=== PATIENT | female | born 1970 | race Caucasian/White ===

== ENCOUNTER 2023-08-28 08:51 | Emergency (ER) | payer OTHER ==
[2023-08-28 09:10] VITALS: RESP 18; TEMP 98; O2SAT 99
--- NOTE | 2023-08-28 09:33 | ERPHSYRPT ---
- History of Present Illness Time Seen by Provider: 08/28/23 09:31 Source: patient Exam Limitations: no limitations Patient Subjective Stated Complaint: C/O nose bleed off and on for 35 minutes Triage Nursing Assessment: Patient ambulated back to ER. She is alert and oriented. Active bleeding present from left nare. Patient given a cool cloth, ic e pack, nose clamp. She is sitting up straight in bed with cold pressure being applied to bridge of nose. NO SOB. Skin tone normal. Physician History: C/O nose bleed off and on for 35 minutes Timing/Duration: abrupt onset Severity: mild ENT Location: nose Prearrival Treatment: squeezing nostrils Associated Symptoms: denies symptoms Allergies/Adverse Reactions: No Known Drug Allergies Allergy (Verified 08/28/23 08:58) Home Medications: Amitriptyline HCl 25 mg [Amitriptyline 25 mg Tablet] 25 mg PO DAILY 08/28/23 [History] Amlodipine Besylate [Norvasc] 10 mg PO DAILY 08/28/23 [History] Atorvastatin Calcium [Lipitor 40Mg] 40 mg PO DAILY 08/28/23 [History] Lamotrigine [Lamotrigine ER] 200 mg PO BID 08/28/23 [History] Omeprazole 40 mg PO DAILY 08/28/23 [History] Warfarin Sodium [Jantoven] 4 mg PO CLARIFY 08/28/23 [History] Hx Tetanus, Diphtheria Vaccination/Date Given: Yes Hx Influenza Vaccination/Date Given: Yes Immunizations Up to Date: Yes Travel Risk - International Travel Have you traveled outside of the country in past 3 weeks: No - Emerging Infectious Disease Are you exhibiting symptoms associated with any current EIDs: No - Review of Systems Constitutional: No Symptoms Eyes: No Symptoms Ears, Nose, & Throat: Epistaxis (Left anterior Nares) Respiratory: No Symptoms Cardiac: No Symptoms Abdominal/Gastrointestinal: No Symptoms Genitourinary Symptoms: No Symptoms Musculoskeletal: No Symptoms Skin: No Symptoms Neurological: No Symptoms Psychological: No Symptoms Endocrine: No Symptoms Hematologic/Lymphatic: No Symptoms Immunological/Allergic: No Symptoms - Past Medical History Neurological History: Seizures Cardiac History: High Cholesterol, Hypertension Endocrine Medical History: Diabetes Type II GI Medical History: GERD, Gallbladder Disease - Past Surgical History Past Surgical History: Yes Cardiac: CABG Gastrointestinal: Cholecystectomy Female Surgical History: Section, Tubal Ligation Other Surgical History: rotator cuff, back shunt (lumbar) - Social History Smoking Status: Never smoker Exposure to second hand smoke: No Drug Use: none - Social Determinants of Health Will the patient participate in the screening: Yes Do you worry about a steady place to live?: No Do you have any problems with any of the following?: No known problems In the past 12 months,have you had to go without utilities?: No Transportation Issues: No Has anyone in your support network made you feel unsafe?: No Have you or anyone in your house had to go without enough: No - Nursing Vital Signs Nursing Vital Signs: Initial Vital Signs Temperature 98 F 08/28/23 09:01 Pulse Rate 63 08/28/23 09:01 Respiratory Rate 18 08/28/23 09:01 Blood Pressure 99/32 08/28/23 09:01 O2 Sat by Pulse Oximetry 99 08/28/23 09:01 Pain Scale Pain Intensity 4 - Physical Exam General Appearance: no apparent distress, alert Eye Exam: bilateral eye: PERRL, EOMI Ear Exam: bilateral ear: auricle normal, canal normal, TM normal Nasal Exam: active bleeding (left anterior Nares) Throat Exam: pharynx normal, moist mucus membranes, No tonsillar exudate Neck Exam: supple Cardiovascular/Respiratory Exam: normal breath sounds, regular rate/rhythm Abdominal Exam: non-tender, soft Neurologic Exam: alert, oriented x 3, sensation nml, No motor deficits Skin Exam: normal color, warm, dry SpO2: 99 - Course Nursing assessment & vital signs reviewed: Yes EKG Interpreted by Me: Sinus Rhythm Ordered Tests: Active Orders 24 hr Category Date Time Status Epistaxis Set Up STAT Care 08/28/23 09:40 Active CBC W DIFF Stat Lab 08/28/23 09:45 Completed PROTIME WITH INR Stat Lab 08/28/23 09:45 Completed PTT Stat Lab 08/28/23 09:45 Completed Medication Summary Discontinued Medications Generic Name Dose Route Start Last Admin Trade Name Monet PRN Reason Stop Dose Admin Phenylephrine HCl 15 ml 08/28/23 09:35 08/28/23 09:36 Neosynephrine 0.5% Nasal [place]/Drops NS 08/28/23 09:36 15 ml STAT ONE Administration Phenylephrine HCl Confirm 08/28/23 09:34 Neosynephrine 0.5% Nasal [place]/Drops Administered 08/28/23 09:35 Dose 15 ml .ROUTE [facility] ONE Lab/Rad Data: Laboratory Result Diagrams 08/28/23 09:45 Laboratory Results 08/28/23 08/28/23 Range/Units 09:45 09:45 WBC 6.1 (3.98-10.04) x10^3/uL RBC 4.34 (3.93-5.22) x10^6/uL Hgb 11.5 (11.2-15.7) g/dL Hct 36.3 (34.1-44.9) % MCV 83.6 (79.4-94.8) fL MCH 26.5 (25.6-32.2) pg MCHC 31.7 L (32.2-35.5) g/dL RDW 16.6 H (11.7-14.4) % Plt Count 271 (182-369) x10^3/uL MPV 9.8 (9.4-12.3) fL Gran % 60.6 (34.0-71.1) % Immature Gran % (Auto) 0.5 H (0.001-0.429) % Nucleat RBC Rel Count 0.0 (0.00-0.2) % Eos # (Auto) 0.03 L (0.04-0.36) x10^3/uL Immature Gran # (Auto) 0.03 (0.001-0.031) x10^3u/L Absolute Lymphs (auto) 2.00 (1.18-3.74) x10^3/uL Absolute Monos (auto) 0.28 (0.24-0.86) x10^3/uL Absolute Nucleated RBC 0.00 (0.00-0.012) x10^3u/L Lymphocytes % 33.1 (19.3-51.7) % Monocytes % 4.6 L (4.7-12.5) % Eosinophils % 0.5 L (0.7-5.8) % Basophils % 0.7 (0.1-1.2) % Absolute Granulocytes 3.67 (1.56-6.13) x10^3/uL Basophils # 0.04 (0.01-0.08) x10^3/uL PT 24.1 H (9.4-12.5) SECONDS INR 2.34 (0.8-3.0) APTT 38.6 H (25.1-36.5) SECONDS - Progress Progress: improved Counseled pt/family regarding: lab results, diagnosis, need for follow-up Medical Desision Making - Independent Historian Additional History obtained from: Spouse, Family - Diagnostic Testing Diagnostic test were ordered, analyzed, and reviewed by me: Yes - Risk of complications Minimal Risk: Minimal risk of morbidity - Departure Departure Disposition: Home Clinical Impression: Acute anterior epistaxis Condition: Stable Critical Care Time: No Referrals: DOCTOR,NO FAMILY [Primary Care Provider] - Follow up/PCP as directed Instructions: Nosebleeds (DC) Additional Instructions: Please keep nose clamp at least for 30 to 40 minutes then you can take it off for few minutes and then put it back. If necessary also put K-Y jelly soaked cotton balls in your left nares. Continue your Coumadin. Stop aspirin for 5 days. Follow-up with your primary care physician tomorrow if bleeding continues. Discharge/Care Plan VIRGILIO GARCIA was seen on 08/28/23 in the Emergency Room. The patient was counseled regarding Diagnosis,Lab results, Imaging studies, need for follow up and when to return to the Emergency Room. Prescriptions given: Discharge Note I have spoken with the patient and/or caregivers. I have explained the patient's condition, diagnosis and treatment plan based on the information available to me at this time. I have answered the patient's and/or caregiver's questions and addressed any concerns. The patient and/or caregivers have as good understanding of the patient's diagnosis, condition and treatment plan as can be expected at this point. The vital signs have been stable. The patient's condition is stable and appropriate for discharge from the emergency department. The patient will pursue further outpatient evaluation with the primary care physician or other designated or consulting physician as outlined in the discharge instructions. The patient and/or caregivers are agreeable to this plan of care and follow-up instructions have been explained in detail. The patient and/or caregivers have received these instruction. The patient/and or caregivers are aware that any significant change in condition or worsening of symptoms sh ould prompt an immediate return to this or the closest emergency department or call 911. VIRGILIO GARCIA was seen on 08/28/23 n the Emergency Room. At that time you were treated for an emergent condition, during your visit Laboratory, Radiology and/or other procedures may have been ordered. It is very important that you follow-up with your Primary Care Physician NO FAMILY DOCTOR within the next 24- 48 hours to review your Emergency Room visit and the final results of testing that was ordered. Some test results such as Urine Cultures, Blood Cultures, and other cultures if ordered will not be finalized for 24-48 hours. If you do not have a Primary Care Provider please call the medical records department at [phone] ext [phone] to obtain a copy of your results or you may sign into our patient portal to obtain these results by visiting us @ [email or web address] and completing the following steps: 1. Click on the Patient Portal link 2. Click the Patient Self Enrollment Link to complete the enrollment form and entering your 3. Once the enrollment form is completed you will receive an email with a temporary ID and password at the email address you provided. 4. Next choose a user name and password. Your user name must be at least 4 characters long and your password must be at least 4 characters long. 5. Choose a security question from the list and provide your answer to the question. If you already have signed into the Health Portal you may access your Health Care Information 27/09 by the following steps: 1. Login to our website @ [email or web address] 2. Enter your original user name and password. FAQS [facility] Portal is an online tool that contains your Lab Results, Radiology Reports, Visit History, Discharge Instructions and Health Summary Lab and Radiology Results will not be available for 72 hours on the portal. The Portal is a secure site, passwords are encryted and URLs are re-written so they cannot be copied and pasted. You and authorized family members are the only ones who can access your Portal. Also there is a timeout feature that protects your information if you leave the Portal page open. If you have technical difficulty please use the Contact Us link on the page this will allow you to submit any questions you have regarding the Portal or you may contact the Medical Record Department at [phone].
[2023-08-28] MEDS ORDERED: NEOSYNEPHRINE 0.5% NASAL SPRAY/DROPS ONE (09:34)
[2023-08-28] MEDS: NEOSYNEPHRINE 0.5% NASAL SPRAY/DROPS NS ONE (09:36)
[2023-08-28 09:58] LABS: Absolute Neutrophil Ct (ANC) 3.67 x10^3/uL (1.56-6.13); BASOPHIL % 0.7 % (0.1-1.2); Basophil (Absolute #) 0.04 x10^3/uL (0.01-0.08); Eosinophil % 0.5 % (0.7-5.8); Eosinophil (Absolute #) 0.03 x10^3/uL (0.04-0.36); Hematocrit 36.3 % (34.1-44.9); Hemoglobin 11.5 g/dL (11.2-15.7); IMMATURE GRAN # 0.03 x10^3u/L (0.001-0.031); IMMATURE GRAN % 0.5 % (0.001-0.429); Lymphocytes % 33.1 % (19.3-51.7); Mean Cell Volume 83.6 fL (79.4-94.8); Mean Corpuscular Hemoglobin 26.5 pg (25.6-32.2); Mean Corpuscular Hgb Concent. 31.7 g/dL (32.2-35.5); Mean Platelet Volume 9.8 fL (9.4-12.3); Monocyte (Absolute #) 0.28 x10^3/uL (0.24-0.86); Monocytes % 4.6 % (4.7-12.5); Neutrophil % 60.6 % (34.0-71.1); Platelet Count 271 x10^3/uL (182-369); Red Blood Count 4.34 x10^6/uL (3.93-5.22); Red Cell Distribution Width 16.6 % (11.7-14.4); White Blood Count 6.1 x10^3/uL (3.98-10.04)
[2023-08-28 10:20] LABS: INR 2.34 (0.8-3.0); PROTIME 24.1 SECONDS (9.4-12.5); PTT 38.6 SECONDS (25.1-36.5)
[2023-08-28 10:47] VITALS: BP 178/68; PULSE 71
== END 2023-08-28 10:47 | disposition home or self-care (01) ==
LOC: ED 08:51
DX: R04.0 Epistaxis (principal); E78.5 Hyperlipidemia, unspecified; I10 Essential (primary) hypertension; E11.9 Type 2 diabetes mellitus without complications; Z79.01 Long term (current) use of anticoagulants; Z79.899 Other long term (current) drug therapy
CPT/HCPCS: 36415; 85025; 85610; 85730; 99283; A9270-GY